=== PATIENT | female | born 2000 | race American Indian/Alaskan Native ===

== ENCOUNTER 2020-10-09 08:36 | Emergency (ER) | payer SELFPAY ==
[2020-10-09] MEDS ORDERED: ONDANSETRON 4 MG/2 ML INJ IV ONE (08:52)
[2020-10-09] MEDS ORDERED: LORazepam 2 MG/ML VIAL IV ONE (08:52)
[2020-10-09] MEDS ORDERED: SODIUM CHLORIDE 0.9% 1000 ML 1,000 ML IV ONE (08:52)
--- NOTE | 2020-10-09 08:54 | Emergency Department Report ---
HPI - General Chief Complaint: Altered Mental Status Time Seen by Provider: 10/09/20 08:49 - HPI HPI: 20-year-old female reportedly with a history of seizure disorder and some kind of congenital diverticulitis brought in by a friend unconscious after 2 days of nausea and vomiting. The patient was brought in from her friend's car in a wheelchair unresponsive. When seen by the triage nurse, the patient started foaming at the mouth and having seizure activity. She was immediately brought back to the room where her seizure activity gradually subsided. She was still having tonic-clonic jerking movement while looking at me and answering my questions including her name. The patient states that she has a history of seizure disorder and has taken her prescribed seizure medications although she does not remember the name. She says she drank alcohol heavily 2 days ago and after this incident has had diffuse abdominal pain with frequent nausea and vomiting since then. She says she was at [facility] yesterday for diverticulitis but left AMA for unknown reasons. She thinks she might of hit the right side of her head at some point today but she is unsure. She is continued to have abdominal pain and nausea/vomiting. Her LMP was 3 weeks ago. There are no known aggravating or alleviating factors. The patient states that she had a fever yesterday but does not remember the temperature. The patient denies any headache, vision change, back pain, chest pain, shortness of breath, cough, focal weakness, sensory changes, dysuria, vaginal bleeding, or any other complaints. ED Past Medical Hx - Past Medical History Previous Medical History?: Yes Hx Seizures: Yes Additional medical history: Diverticulitis? - Medications Home Medications: Home Medications Medication Instructions Recorded Confirmed Last Taken Type Amoxicillin/K Clav Tab [Augmentin 1 tab PO BID #20 tab 10/09/20 Unknown Rx 875 mg] Ondansetron [Zofran ODT TAB] 4 mg PO Q6H PRN #15 tab.rapdis 10/09/20 Unknown Rx ED Review of Systems ROS: Stated complaint: UNRESPONSIVE Other details as noted in HPI Constitutional: fever. denies: chills Eyes: denies: eye pain, vision change ENT: denies: throat pain, congestion Respiratory: denies: cough, shortness of breath Cardiovascular: denies: chest pain, palpitations, syncope Gastrointestinal: abdominal pain, nausea, vomiting. denies: diarrhea, constipation, hematemesis, melena, hematochezia Genitourinary: denies: dysuria, frequency, abnormal menses Musculoskeletal: denies: back pain, joint swelling Skin: denies: rash, lesions Neurological: denies: headache, weakness, numbness, paresthesias, confusion Physical Exam - Physical Exam Physical Exam: GENERAL: Well developed and well nourished. When first examined patient was having tonic-clonic seizure-like activity but was awake and answering questions at the time. HEAD: Normocephalic. No obvious signs of trauma but possible right frontal scalp contusion. ENT: Dry mucous membranes. EYES: Extraocular movements are intact. Pupils are equal round and reactive to light bilaterally NECK: Supple. Full ROM is intact. Trachea is midline. LUNGS: Nonlabored breathing. Equal chest rise bilaterally. Clear to auscultation bilaterally. CARDIOVASCULAR: Regular rate and rhythm. No murmurs or rubs. VASCULAR: Cap refill < 2 seconds ABDOMEN: Abdomen is soft and nondistended. There is tenderness noted diffusely but most significantly in the epigastrium without guarding or rebound tenderness. SKIN: Skin is warm and dry NEURO: Patient was initially having tonic clonic seizure activity although answering questions. After the patient's tonic-clonic like activity stopped the patient was awake, alert, and oriented. folding machine tender II-XII grossly intact. No focal deficits. Normal motor and sensory exam throughout. Normal speech. MUSCULOSKELETAL: No obvious deformities. No significant tenderness. Normal ROM throughout. BACK/SPINE: No midline tenderness or step-offs of the C/T/L spine. No costovertebral angle tenderness. ED Medical Decision Making - Lab Data Result diagrams: 10/09/20 08:53 10/09/20 08:53 Lab Results 10/09/20 10/09/20 10/09/20 Range/Units 08:53 08:53 08:53 WBC 10.8 (4.5-11.0) K/mm3 RBC 4.30 (3.65-5.03) M/mm3 Hgb 12.2 (10.1-14.3) gm/dl Hct 36.4 (30.3-42.9) % MCV 85 (79-97) fl MCH 28 (28-32) pg MCHC 33 (30-34) % RDW 15.0 (13.2-15.2) % Plt Count 273 (140-440) K/mm3 Lymph % (Auto) 9.1 L (13.4-35.0) % Ulster % (Auto) 6.7 (0.0-7.3) % Eos % (Auto) 0.0 (0.0-4.3) % Baso % (Auto) 0.2 (0.0-1.8) % Lymph # (Auto) 1.0 L (1.2-5.4) K/mm3 Ulster # (Auto) 0.7 (0.0-0.8) K/mm3 Eos # (Auto) 0.0 (0.0-0.4) K/mm3 Baso # (Auto) 0.0 (0.0-0.1) K/mm3 Seg Neutrophils % 84.0 H (40.0-70.0) % Seg Neutrophils # 9.1 H (1.8-7.7) K/mm3 PT 13.9 (12.2-14.9) Sec. INR 1.02 (0.87-1.13) APTT 30.7 (24.2-36.6) Sec. Sodium 139 (137-145) mmol/L Potassium 3.6 (3.6-5.0) mmol/L Chloride 98.5 (98-107) mmol/L Carbon Dioxide 21 L (22-30) mmol/L Anion Gap 23 mmol/L BUN 14 (7-17) mg/dL Creatinine 1.0 (0.6-1.2) mg/dL Estimated GFR > 60 ml/min BUN/Creatinine Ratio 14 % Glucose 87 (65-100) mg/dL Calcium 10.0 (8.4-10.2) mg/dL Magnesium 1.70 (1.7-2.3) mg/dL Total Bilirubin 0.70 (0.1-1.2) mg/dL Direct Bilirubin < 0.2 (0-0.2) mg/dL Indirect Bilirubin 0.5 mg/dL AST 27 (5-40) units/L ALT 20 (7-56) units/L Alkaline Phosphatase 51 (35-129) units/L Total Protein 7.6 (6.3-8.2) g/dL Albumin 4.8 (3.9-5) g/dL Albumin/Globulin Ratio 1.7 % Lipase 18 (13-60) units/L HCG, Qual (Negative) Salicylates (2.8-20.0) mg/dL Acetaminophen (10.0-30.0) ug/mL Plasma/Serum Alcohol (0-0.07) % 10/09/20 10/09/20 10/09/20 Range/Units 08:53 08:53 08:53 WBC (4.5-11.0) K/mm3 RBC (3.65-5.03) M/mm3 Hgb (10.1-14.3) gm/dl Hct (30.3-42.9) % MCV (79-97) fl MCH (28-32) pg MCHC (30-34) % RDW (13.2-15.2) % Plt Count (140-440) K/mm3 Lymph % (Auto) (13.4-35.0) % Ulster % (Auto) (0.0-7.3) % Eos % (Auto) (0.0-4.3) % Baso % (Auto) (0.0-1.8) % Lymph # (Auto) (1.2-5.4) K/mm3 Ulster # (Auto) (0.0-0.8) K/mm3 Eos # (Auto) (0.0-0.4) K/mm3 Baso # (Auto) (0.0-0.1) K/mm3 Seg Neutrophils % (40.0-70.0) % Seg Neutrophils # (1.8-7.7) K/mm3 PT (12.2-14.9) Sec. INR (0.87-1.13) APTT (24.2-36.6) Sec. Sodium (137-145) mmol/L Potassium (3.6-5.0) mmol/L Chloride (98-107) mmol/L Carbon Dioxide (22-30) mmol/L Anion Gap mmol/L BUN (7-17) mg/dL Creatinine (0.6-1.2) mg/dL Estimated GFR ml/min BUN/Creatinine Ratio % Glucose (65-100) mg/dL Calcium (8.4-10.2) mg/dL Magnesium (1.7-2.3) mg/dL Total Bilirubin (0.1-1.2) mg/dL Direct Bilirubin (0-0.2) mg/dL Indirect Bilirubin mg/dL AST (5-40) units/L ALT (7-56) units/L Alkaline Phosphatase (35-129) units/L Total Protein (6.3-8.2) g/dL Albumin (3.9-5) g/dL Albumin/Globulin Ratio % Lipase (13-60) units/L HCG, Qual (Negative) Salicylates < 0.3 L (2.8-20.0) mg/dL Acetaminophen 5.0 L (10.0-30.0) ug/mL Plasma/Serum Alcohol < 0.01 (0-0.07) % 10/09/20 Range/Units 09:02 WBC (4.5-11.0) K/mm3 RBC (3.65-5.03) M/mm3 Hgb (10.1-14.3) gm/dl Hct (30.3-42.9) % MCV (79-97) fl MCH (28-32) pg MCHC (30-34) % RDW (13.2-15.2) % Plt Count (140-440) K/mm3 Lymph % (Auto) (13.4-35.0) % Ulster % (Auto) (0.0-7.3) % Eos % (Auto) (0.0-4.3) % Baso % (Auto) (0.0-1.8) % Lymph # (Auto) (1.2-5.4) K/mm3 Ulster # (Auto) (0.0-0.8) K/mm3 Eos # (Auto) (0.0-0.4) K/mm3 Baso # (Auto) (0.0-0.1) K/mm3 Seg Neutrophils % (40.0-70.0) % Seg Neutrophils # (1.8-7.7) K/mm3 PT (12.2-14.9) Sec. INR (0.87-1.13) APTT (24.2-36.6) Sec. Sodium (137-145) mmol/L Potassium (3.6-5.0) mmol/L Chloride (98-107) mmol/L Carbon Dioxide (22-30) mmol/L Anion Gap mmol/L BUN (7-17) mg/dL Creatinine (0.6-1.2) mg/dL Estimated GFR ml/min BUN/Creatinine Ratio % Glucose (65-100) mg/dL Calcium (8.4-10.2) mg/dL Magnesium (1.7-2.3) mg/dL Total Bilirubin (0.1-1.2) mg/dL Direct Bilirubin (0-0.2) mg/dL Indirect Bilirubin mg/dL AST (5-40) units/L ALT (7-56) units/L Alkaline Phosphatase (35-129) units/L Total Protein (6.3-8.2) g/dL Albumin (3.9-5) g/dL Albumin/Globulin Ratio % Lipase (13-60) units/L HCG, Qual Negative (Negative) Salicylates (2.8-20.0) mg/dL Acetaminophen (10.0-30.0) ug/mL Plasma/Serum Alcohol (0-0.07) % - Radiology Data CT head/brain wo con INDICATION / CLINICAL INFORMATION: 20 years Female; seizure, trauma. TECHNIQUE: Routine CT head without contrast. All CT scans at this location are performed using CT dose reduction for [employer] by means of automated exposure control. COMPARISON: None. FINDINGS: BRAIN / INTRACRANIAL CONTENTS: Some component of white matter disease is seen in the superior frontal gyral region on the left. Possibility of vasogenic edema in this region cannot entirely be excluded. Pre and postcontrast MRI of the brain would be helpful for further evaluation. Otherwise, no acute hemorrhage, mass effect, midline shift, hydrocephalus, or acute, large territorial infarct. No signs of significant atrophy or chronic infarct. No other significant white matter abnormality seen. CRANIOCERVICAL JUNCTION: No significant abnormality. ORBITS: No significant abnormality of visualized orbits. SINUSES / MASTOIDS: Visualized paranasal sinuses and mastoid air cells are essentially clear. ADDITIONAL FINDINGS: None. IMPRESSION: 1. No focal mass, hemorrhage, hydrocephalus, or acute, large territorial infarct. Signer Name: Jorge Levy MD, III Signed: 10/09/2020 9:25 AM Workstation Name: [id number] CT abdomen pelvis w con INDICATION / CLINICAL INFORMATION: epigastric tenderness, hx oif diverticulitis OMNI 300 100 ML. TECHNIQUE: Axial CT images were obtained through the abdomen and pelvis after IV contrast. All CT scans at this location are performed using CT dose reduction for ALARA by means of automated exposure control. COMPARISON: None available. FINDINGS: LOWER CHEST: No significant abnormality LIVER: Borderline hepatomegaly, measuring 17.8 cm. Nonspecific heterogeneous attenuation of the liver. No focal lesion. No intrahepatic biliary dilatation. GALLBLADDER/BILIARY TREE: No significant abnormality. No common duct dilatation. PANCREAS: No significant abnormality SPLEEN: No significant abnormality ADRENALS: No significant abnormality KIDNEYS / URETER: No significant abnormality URINARY BLADDER: No significant abnormality REPRODUCTIVE ORGANS: 2.2 cm crenated cystic structure in the left adnexa is consistent with a corpus luteum cyst. Trace pelvic free fluid is likely physiologic in a premenopausal patient. No organized collection. Uterus is unremarkable. STOMACH / BOWEL: Stomach and small bowel are normal in caliber. Colon is partially decompressed with mild mural thickening and pericolonic infla mmatory stranding, may reflect colitis. No evidence of bowel obstruction. Appendix is normal. LYMPH NODES: No significant adenopathy. VASCULATURE: No significant abnormality. OTHER: Trace pelvic free fluid, as above. No organized collection. No free air. SKELETAL SYSTEM: No acute osseous findings. IMPRESSION: 1. Mild diffuse colonic mural thickening and pericolonic inflammatory stranding, may reflect early infectious or inflammatory colitis. 2. Nonspecific borderline hepatomegaly and heterogeneous attenuation of the liver. This could reflect passive hepatic congestion or liver disease. Recommend correlation with laboratory function tests. 3. Left adnexal corpus luteum cyst with trace free fluid, likely physiologic. Signer Name: Ulisses Deleon MD Signed: 10/09/2020 9:30 AM Workstation Name: [id number] - Medical Decision Making 20-year-old female reportedly with a history of seizure disorder and some kind of congenital diverticulitis brought in by a friend unconscious after 2 days of nausea and vomiting. The patient was brought in from her friend's car in a wheelchair unresponsive. When seen by the triage nurse, the patient started foaming at the mouth and having seizure activity. She was immediately brought back to the room where her seizure activity gradually subsided. She was still having tonic-clonic jerking movement while looking at me and answering my questions including her name. In addition, after the patient seizure-like activity stopped she had no post ictal state. The patient's says that her seizure medication is in her purse but no pills were found there. She also says she has a history of frequent colitis and was diagnosed with colitis at [facility] yesterday but left AMA. She is afebrile and with normal vital signs. Physical examination reveals slightly dry mucous membranes. There is no obvious signs of trauma to the head but there is a possible right frontal head contusion. She has diffuse abdominal tenderness most significantly in the epigastrium without guarding or rebound. She has a nonfocal neurologic exam. We will perform broad work-up with a full set of labs, CT of the head given that the patient hit her head and may or may not have lost consciousness, and CT of the abdomen and pelvis to assess for evidence of colitis, appendicitis, cholecystitis, or any other intra-abdominal catastrophe. We will give 1 L of IV fluid, Ativan, and Zofran and reassess. At 9:30 AM, labs have partially resulted revealing no leukocytosis or anemia. Remaining labs have resulted at 10 AM and kidney function is normal and there are no significant electrolyte abnormalities. LFTs are within normal limits. On repeat assessment at this time, the patient remains asymptomatic and she is alert and oriented with a nonfocal neurologic exam. CT of the head reveals no acute abnormalities. CT of the abdomen pelvis with IV contrast reveals findings consistent with colitis as well as borderline hepatomegaly with heterogeneous attenuation noted. However, patient's LFTs are within normal limits. I spoke to the patient regarding the likely diagnosis and she requested that I discharge her on antibiotics. She states she wants to go home and does not want a wait for urinalysis. She understands that foregoing urinalysis confers the risk of a missed diagnoses, and potential complications but still wants to leave. I will therefore prescribe Augmentin 750 mg twice daily x 10 days. I will also prescribe as needed Zofran. I will give her follow-up with a partner marketing intern. I have also given her a printed copy of her CT report for her to bring to the GI doctor. The patient expressed understanding agreement with this plan of care. She will return to the emergency department should she develop worsening symptoms, inability to tolerate p.o., or any other concerns. The patient's was never able to find out the name of her seizure medication but she says she has it well stocked at her hotel room. I have asked her to complete a p.o. prior to discharge. The patient has passed her p.o. trial. She is ambulating with a steady gait. Critical Care Time: Yes Critical care time in (mins) excluding proc time.: 35 Critical care attestation.: If time is entered above; I have spent that time in minutes in the direct care of this critically ill patient, excluding procedure time. Critical care time was spent in the assessment, evaluation, work-up, and management of patient with seizure-like activity and unresponsiveness requiring IV Ativan, IV fluids, and frequent reevaluation reassessment. ED Disposition Clinical Impression: Colitis, Hepatomegaly, Seizure-like activity Disposition: - TO HOME OR SELFCARE Is pt being admited?: No Condition: Fair Instructions: Hepatomegaly, Colitis Prescriptions: Amoxicillin/K Clav Tab [Augmentin 875 mg] 1 tab PO BID #20 tab Ondansetron [Zofran ODT TAB] 4 mg PO Q6H PRN #15 tab.rapdis PRN Reason: Nausea And Vomiting Referrals: [facility] [Provider Group] - 2-3 Days
[2020-10-09 09:23] LABS: Basophils % (Auto) 0.2 % (0.0-1.8); Hematocrit 36.4 % (30.3-42.9); Hemoglobin 12.2 gm/dl (10.1-14.3); Lymphocytes % (Auto) 9.1 % (13.4-35.0); Mean Corpuscular HGB Conc 33 % (30-34); Mean Corpuscular Volume 85 fl (79-97); Monocytes # (Auto) 0.7 K/mm3 (0.0-0.8); Monocytes % (Auto) 6.7 % (0.0-7.3); Platelet Count 273 K/mm3 (140-440)
[2020-10-09 09:32] LABS: Alanine Aminotransferase 20 units/L (7-56); Albumin 4.8 g/dL (3.9-5); BUN/Creatinine Ratio 14; Blood Urea Nitrogen 14 mg/dL (7-17); Hemolysis Index 5
[2020-10-09 09:33] LABS: Bilirubin,Direct < 0.2 mg/dL (0-0.2)
[2020-10-09 09:43] LABS: INR 1.02 (0.87-1.13)
[2020-10-09 09:44] LABS: Partial Thromboplastin Time 30.7 Sec. (24.2-36.6)
--- NOTE | 2020-10-09 10:29 | Cat Scan Report ---
CT head/brain wo con INDICATION / CLINICAL INFORMATION: 20 years Female; seizure, trauma. TECHNIQUE: Routine CT head without contrast. All CT scans at this location are performed using CT dos e reduction for ALARA by means of automated exposure control. COMPARISON: None. FINDINGS: BRAIN / INTRACRANIAL CONTENTS: Some component of white matter disease is seen in the superior frontal gyral region on the left. Possibility of vasogenic edema in this region cannot entirely be excluded. Pre and postcontrast MRI of the brain would be helpful for further evaluation. Otherwise, no acute hemorrhage, mass effect, midline shift, hydrocephalus, or acute, large territori al infarct. No signs of significant atrophy or chronic infarct. No other significant white matter abnormality seen. CRANIOCERVICAL JUNCTION: No significant abnormality. ORBITS: No significant abnormality of visualized orbits. SINUSES / MASTOIDS: Visualized paranasal sinuses and mastoid air cells are essentially clear. ADDITIONAL FINDINGS: None. IMPRESSION: 1. No focal mass, hemorrhage, hydrocephalus, or acute, large territorial infarct. Signer Name: Jorge Levy MD, III Signed: 10/09/2020 10:25 AM Workstation Name: [id number]
--- NOTE | 2020-10-09 10:34 | Cat Scan Report ---
CT abdomen pelvis w con INDICATION / CLINICAL INFORMATION: epigastric tenderness, hx oif diverticulitis OMNI 300 100 ML. TECHNIQUE: Axial CT images were obtained through the abdomen and pelvis after IV contrast. All CT sc ans at this location are performed using CT dose reduction for ALARA by means of automated exposure c ontrol. COMPARISON: None available. FINDINGS: LOWER CHEST: No significant abnormality LIVER: Borderline hepatomegaly, measuring 17.8 cm. Nonspecific heterogeneous attenuation of the liver . No focal lesion. No intrahepatic biliary dilatation. GALLBLADDER/BILIARY TREE: No significant abnormality. No common duct dilatation. PANCREAS: No significant abnormality SPLEEN: No significant abnormality ADRENALS: No significant abnormality KIDNEYS / URETER: No significant abnormality URINARY BLADDER: No significant abnormality REPRODUCTIVE ORGANS: 2.2 cm crenated cystic structure in the left adnexa is consistent with a corpus luteum cyst. Trace pelvic free fluid is likely physiologic in a premenopausal patient. No organized c ollection. Uterus is unremarkable. STOMACH / BOWEL: Stomach and small bowel are normal in caliber. Colon is partially decompressed with mild mural thickening and pericolonic inflammatory stranding, may reflect colitis. No evidence of bow el obstruction. Appendix is normal. LYMPH NODES: No significant adenopathy. VASCULATURE: No significant abnormality. OTHER: Trace pelvic free fluid, as above. No organized collection. No free air. SKELETAL SYSTEM: No acute osseous findings. IMPRESSION: 1. Mild diffuse colonic mural thickening and pericolonic inflammatory stranding, may reflect early in fectious or inflammatory colitis. 2. Nonspecific borderline hepatomegaly and heterogeneous attenuation of the liver. This could reflect passive hepatic congestion or liver disease. Recommend correlation with laboratory function tests. 3. Left adnexal corpus luteum cyst with trace free fluid, likely physiologic. Signer Name: Ulisses Deleon MD Signed: 10/09/2020 10:30 AM Workstation Name: [id number]
[2020-10-09 11:11] VITALS: BP 107/62
== END 2020-10-09 11:12 | disposition home or self-care (01) ==
LOC: ED 08:36
DX: K52.9 Noninfective gastroenteritis and colitis, unspecified (principal); R16.0 Hepatomegaly, not elsewhere classified; R56.9 Unspecified convulsions
CPT/HCPCS: 36415; 70450; 74177; 80048; 80076; 83690; 83735; 84703; 85025; 85610; 85730; 87040; 99284; Q9967; 80320; G0480